=== PATIENT | female | born 1960 | race Caucasian/White ===

== ENCOUNTER → 2017-03-11 | Outpatient (CLI) | payer BC ==
--- NOTE | ~2017-03-11 | MY11 ---
[facility] A Service of [facility] RADIOLOGY TEXT RESULTS PATIENT: RAJ MORRIS LOCATION: [facility] : 56 UNIT #: [id number] AGE: [address]: John Mcnulty MD SEX: F ORDER DR: [id number] [facility]. [place], [place] [address] [id number] O MR#: [id number] Acc #: [id number] NAME: RAJ MORRIS : 1960 SEX: F STUDY DATE/TIME: 03/11/2017 8:20 UNIT: [facility] ROOM: STUDY DESCRIPTION: MY Mammogram Screening Dig Tom Attending Physician: John Mcnulty M.D. Referring Physician: John Mcnulty M.D. Ordering Physician: John Mcnulty M.D. Primary Care Physician: John Mcnulty M.D. MEDICAL IMAGING REPORT This report is preliminary unless electronic signature is present EXAM Bilateral digital screening mammogram with CAD INDICATION Breast cancer screening. 56-year-old asymptomatic female. No personal or family history of breast cancer. COMPARISONS September 08, 2015, August 02, 2014, December 08, 2010, September 27, 2009, September 24, 2008, September 24, 2007. FINDINGS The breasts are almost entirely fatty. No suspicious findings are present. IMPRESSION No mammographic evidence of malignancy. Annual screening mammography and clinical breast exam are recommended. A result letter will be sent to the patient. Patients over the age of 40 are entered into a reminder system with target due date for the next mammogram. BIRADS: 1 Negative Dictated by... Lucio Gupta M.D. THIS IS AN ELECTRONICALLY VERIFIED REPORT Lucio Gupta M.D. at 03/11/2017 5:24 PM RYLAN/patricio [facility] A Service of [facility] RADIOLOGY TEXT RESULTS PATIENT: RAJ MORRIS LOCATION: [facility] : 56 UNIT #: [id number] AGE: [address]: John Mcnulty MD SEX: F ORDER DR: TD: 03/11/2017 10:14 JOB #: [id number] MEDICAL IMAGING REPORT Page 1 of 1 COPY
== END | disposition home or self-care (01) ==
LOC: CWCC 07:50
DX: Z12.31 Encounter for screening mammogram for malignant neoplasm of breast (principal)
CPT/HCPCS: G0202